=== PATIENT | male | born 1960 | race Two or more races ===

== ENCOUNTER 2023-09-15 09:09 | Inpatient (IN) | payer MEDICAID ==
[~2023-09-15] VITALS: Ht 162.6 cm; Wt 83.5 kg
[2023-09-15] MEDS ORDERED: ONDANSETRON HCL 4 MG/2 ML VIAL IV ONE (09:30)
[2023-09-15] MEDS ORDERED: MORPHINE SULFATE 4 MG/ML SYR/VIAL IV ONE (09:30)
[2023-09-15] MEDS ORDERED: SODIUM CHLORIDE 0.9% 500 ML IVB ONE (09:30)
[2023-09-15 09:36] LABS: Urine Epithelial Cast None Seen /hpf (<5)
[2023-09-15 10:03] LABS: Basophils # (auto) 0.1 10 ^3/uL (0-0.2); Eosinophils # (auto) 0.9 10 ^3/uL (0-0.8); Hemoglobin 12.6 g/dL (13.5-17.5); Mean Corpuscular Hgb Conc. 33.4 g/dL (32.0-36.0); Monocytes # (auto) 1.6 10 ^3/uL (0-1.3); Monocytes % (auto) 10.2 % (0.0-12.0); Neutrophils # (auto) 11.1 10 ^3/uL (1.6-8.6)
[2023-09-15 10:06] LABS: Basophils % (auto) 0.7 % (0.0-2.0); Eosinophils % (auto) 5.5 % (0.0-7.0); Hematocrit 37.6 % (41.0-53.0); Lymphocytes % (auto) 12.6 % (10.0-50.0); Mean Corpuscular Hemoglobin 29.5 pg (28.0-32.0); Mean Corpuscular Volume 88.1 fL (80.0-100.0); Red Blood Cells 4.27 10^6/uL (4.5-5.90); Red Cell Distribution Width 13.3 % (11.8-14.3); White Blood Cell 15.6 10^3/uL (4.4-10.8)
[2023-09-15 10:31] LABS: Alanine Aminotransferase 24 U/L (7-40); Alkaline Phosphatase 144 U/L (46-116); Anion Gap 7 (5-15); Aspartate Aminotransferase 12 U/L (13-40); BUN/Creatinine Ratio 22.8 (10.0-20.0); Bilirubin, Total 0.4 mg/dL (0.2-1.0); Blood Urea Nitrogen 13 mg/dL (9-23); Carbon Dioxide 27 mmol/L (20-30); Chloride 100 mmol/L (98-107); Glucose 124 mg/dL (74-106); Lipase 29 U/L (12-53); Potassium 4.2 mmol/L (3.5-5.1); Sodium 134 mmol/L (136-145); Total Protein 7.8 g/dL (5.7-8.2)
[2023-09-15 10:45] LABS: Urine Bacteria NONE SEEN /hpf (None Seen); Urine Blood Negative /uL (Negative); Urine Budding Yeast FEW /hpf (None Seen); Urine Clarity HAZY (Clear); Urine Color Yellow (Yellow); Urine Mucus FEW (None Seen); Urine Protein, UAD TRACE (Negative); Urine Specific Gravity 1.023 (1.001-1.035); Urine WBC 2 /hpf (0 - 3); Urine pH 7.5 (5.0-8.0)
[2023-09-15] MEDS ORDERED: IOHEXOL 300 MG/ML 100ML BOTTLE IJ ONE (10:52)
[2023-09-15] MEDS ORDERED: VANCOMYCIN HCL 1000 MG VL IR ONE (12:15)
[2023-09-15] MEDS ORDERED: PIPERACILLIN-TAZOB 3.375GM 100 ML IV ONE (12:15)
[2023-09-15] MEDS ORDERED: VANCOMYCIN 1GM/200ML 200 ML IV ONE (13:45)
[2023-09-15] MEDS ORDERED: VANCOMYCIN PER PHARMACY 0 MG IV SCH (15:00)
[2023-09-15] MEDS: PIPERACILLIN-TAZOB 3.375GM 100 ML IV SCH (18:30)
[2023-09-15 21:00] VITALS: PULSE 100; RESP 18; O2SAT 97
[2023-09-15] MEDS: ONDANSETRON HCL 4 MG/2 ML VIAL IV PRN (21:10)
[2023-09-15] MEDS: MORPHINE SULFATE INJ 2 MG/ml SYRG IV PRN (21:11)
[2023-09-16] MEDS: PIPERACILLIN-TAZOB 3.375GM 100 ML IV SCH ×4 (00:21→22:09)
[2023-09-16] MEDS: ONDANSETRON HCL 4 MG/2 ML VIAL IV PRN ×2 (02:12→07:08)
[2023-09-16] MEDS: MORPHINE SULFATE INJ 2 MG/ml SYRG IV PRN ×5 (02:13→23:55)
[2023-09-16] MEDS: VANCOMYCIN 1GM/200ML 200 ML IV SCH ×3 (02:54→23:02)
[2023-09-16 06:46] LABS: Eosinophils % (auto) 9.1 % (0.0-7.0)
[2023-09-16 06:49] LABS: Basophils # (auto) 0.2 10 ^3/uL (0-0.2); Eosinophils # (auto) 1.5 10 ^3/uL (0-0.8); Hematocrit 37.1 % (41.0-53.0); Hemoglobin 12.4 g/dL (13.5-17.5); Lymphocytes # (auto) 2.4 10 ^3/uL (0.4-5.4); Lymphocytes % (auto) 13.8 % (10.0-50.0); Mean Corpuscular Hemoglobin 29.6 pg (28.0-32.0); Mean Corpuscular Hgb Conc. 33.4 g/dL (32.0-36.0); Mean Corpuscular Volume 88.6 fL (80.0-100.0); Monocytes # (auto) 1.8 10 ^3/uL (0-1.3); Monocytes % (auto) 10.6 % (0.0-12.0); Neutrophils # (auto) 11.2 10 ^3/uL (1.6-8.6); Neutrophils % (auto) 65.5 % (37.0-80.0); Red Blood Cells 4.18 10^6/uL (4.5-5.90); Red Cell Distribution Width 13.4 % (11.8-14.3); White Blood Cell 17.1 10^3/uL (4.4-10.8)
[2023-09-16 06:55] LABS: INR 1.26 (0.9-1.15)
[2023-09-16 07:04] LABS: Alanine Aminotransferase 22 U/L (7-40); Albumin 4.1 g/dL (3.2-4.8); Alkaline Phosphatase 141 U/L (46-116); Anion Gap 7 (5-15); Aspartate Aminotransferase 10 U/L (13-40); BUN/Creatinine Ratio 17.6 (10.0-20.0); Bilirubin, Total 0.7 mg/dL (0.2-1.0); Blood Urea Nitrogen 12 mg/dL (9-23); Calcium 9.1 mg/dL (8.7-10.4); Carbon Dioxide 26 mmol/L (20-30); Chloride 100 mmol/L (98-107); Glucose 95 mg/dL (74-106); Potassium 4.5 mmol/L (3.5-5.1); Sodium 133 mmol/L (136-145)
[2023-09-16 07:05] LABS: Total Protein 7.9 g/dL (5.7-8.2)
[2023-09-16] MEDS ORDERED: ENOXAPARIN SOD 40 MG/0.4 ML SYRINGE SC SCH (10:00)
[2023-09-16] MEDS ORDERED: fentaNYL CITRATE 100 MCG/2 ML VL IV ONE (10:15)
[2023-09-16] MEDS ORDERED: MIDAZOLAM HCL 2MG/2ML 2ml VIAL (1mg/ml) IV ONE (10:15)
[2023-09-16] MEDS ORDERED: LIDOCAINE 2%HCL (LOCAL ANESTH.) INJ 10ml MDV ONE (12:25)
[2023-09-16] MEDS ORDERED: IOHEXOL 300 MG/ML 100ML BOTTLE IJ ONE (13:07)
[2023-09-16] MEDS ORDERED: GADOTERATE MEG 10 MMOL/20ml INJ (0.5MMOL/ml) IV ONE (17:37)
[2023-09-16 17:40] VITALS: BP 133/71; PULSE 87; RESP 20; TEMP 98.2; O2SAT 94
[2023-09-16 17:45] VITALS: BP 133/71; PULSE 87; RESP 20; TEMP 98.7; O2SAT 96
[2023-09-16] MEDS ORDERED: IBUP200C3 PO (18:26)
[2023-09-16 20:00] VITALS: PULSE 87; RESP 20; O2SAT 96
[2023-09-16 22:00] VITALS: BP_SYST 58; PULSE 82; RESP 18; TEMP 98.7; O2SAT 95
[2023-09-17] MEDS: PIPERACILLIN-TAZOB 3.375GM 100 ML IV SCH ×4 (00:39→17:59)
[2023-09-17] MEDS: MORPHINE SULFATE INJ 2 MG/ml SYRG IV PRN ×3 (05:46→17:56)
[2023-09-17 05:49] VITALS: BP 105/66; PULSE 83; RESP 20; TEMP 97.8; O2SAT 94
[2023-09-17 09:00] VITALS: BP 109/65; PULSE 82; RESP 20; TEMP 99.3; O2SAT 90
[2023-09-17] MEDS: VANCOMYCIN 1GM/200ML 200 ML IV SCH ×2 (09:00→18:55)
[2023-09-17 09:25] LABS: Basophils # (auto) 0.1 10 ^3/uL (0-0.2); Basophils % (auto) 0.6 % (0.0-2.0); Eosinophils # (auto) 1.2 10 ^3/uL (0-0.8); Eosinophils % (auto) 7.3 % (0.0-7.0); Hematocrit 36.6 % (41.0-53.0); Hemoglobin 12.4 g/dL (13.5-17.5); Lymphocytes # (auto) 1.7 10 ^3/uL (0.4-5.4); Mean Corpuscular Hemoglobin 30.4 pg (28.0-32.0); Mean Corpuscular Hgb Conc. 33.9 g/dL (32.0-36.0); Mean Corpuscular Volume 89.6 fL (80.0-100.0); Monocytes # (auto) 1.5 10 ^3/uL (0-1.3); Monocytes % (auto) 9.3 % (0.0-12.0); Neutrophils # (auto) 11.3 10 ^3/uL (1.6-8.6); Neutrophils % (auto) 71.8 % (37.0-80.0); Red Blood Cells 4.08 10^6/uL (4.5-5.90); Red Cell Distribution Width 13.5 % (11.8-14.3); White Blood Cell 15.8 10^3/uL (4.4-10.8)
[2023-09-17 09:34] LABS: Chloride 101 mmol/L (98-107); Potassium 4.1 mmol/L (3.5-5.1); Sodium 134 mmol/L (136-145)
[2023-09-17 09:35] LABS: Anion Gap 7 (5-15); Calcium 8.9 mg/dL (8.5-10.1); Carbon Dioxide 26 mmol/L (20-30)
[2023-09-17 09:40] LABS: BUN/Creatinine Ratio 13.3 (10.0-20.0); Blood Urea Nitrogen 10 mg/dL (9-23); Glucose 86 mg/dL (74-106)
[2023-09-17 13:45] VITALS: BP 128/74; PULSE 89; RESP 20; TEMP 98.4; O2SAT 91
[2023-09-17 17:05] VITALS: BP 128/64; PULSE 95; RESP 20; TEMP 99.8; O2SAT 90
[2023-09-17 20:00] VITALS: PULSE 104; RESP 18; O2SAT 91
[2023-09-17 22:16] VITALS: BP 126/60; PULSE 104; RESP 18; TEMP 97.8; O2SAT 91
[2023-09-18] MEDS: PIPERACILLIN-TAZOB 3.375GM 100 ML IV SCH ×4 (00:03→18:02)
[2023-09-18] MEDS: MORPHINE SULFATE INJ 2 MG/ml SYRG IV PRN ×3 (00:12→11:57)
[2023-09-18] MEDS: VANCOMYCIN 1GM/200ML 200 ML IV SCH ×2 (05:17→17:09)
[2023-09-18 05:26] VITALS: BP 120/65; PULSE 71; RESP 20; TEMP 98.6; O2SAT 95
[2023-09-18 09:30] VITALS: BP 120/66; PULSE 78; RESP 20; TEMP 99.3; O2SAT 93
[2023-09-18 12:33] VITALS: BP 120/63; PULSE 78; RESP 20; TEMP 98.8; O2SAT 93
[2023-09-18] MEDS ORDERED: VANCOMYCIN PER PHARMACY 0 MG IV SCH (14:45)
[2023-09-18] MEDS: HYDROcodone-ACET 10/325MG TAB PO PRN (19:01)
[2023-09-18 20:00] VITALS: RESP 18; O2SAT 91
[2023-09-18 22:00] VITALS: BP 114/71; PULSE 70; RESP 18; TEMP 97.9; O2SAT 100
[2023-09-19] VITALS (7 sets, daily range): BP systolic 102–134; BP diastolic 61–79; PULSE 60–77; RESP 18–20; TEMP 97.5–97.9; O2SAT 95–100
[2023-09-19] MEDS: PIPERACILLIN-TAZOB 3.375GM 100 ML IV SCH ×3 (00:14→11:57)
[2023-09-19] MEDS: VANCOMYCIN 1GM/200ML 200 ML IV SCH ×3 (02:27→21:04)
[2023-09-19] MEDS: HYDROcodone-ACET 10/325MG TAB PO PRN ×3 (02:34→16:04)
[2023-09-19] MEDS: metroNIDAZOLE 500 MG TAB PO SCH (21:04)
[2023-09-20] VITALS (7 sets, daily range): BP systolic 123–144; BP diastolic 68–80; PULSE 65–87; RESP 16–19; TEMP 97.7–98.4; O2SAT 91–100
[2023-09-20] MEDS: HYDROcodone-ACET 10/325MG TAB PO PRN ×3 (03:00→20:14)
[2023-09-20] MEDS: metroNIDAZOLE 500 MG TAB PO SCH ×3 (06:06→21:23)
[2023-09-20] MEDS: VANCOMYCIN 1GM/200ML 200 ML IV SCH (06:06)
[2023-09-20] MEDS: CEFTRIAXONE SODIUM 2 GM in D5W 5% 100 ML IV SCH (09:51)
[2023-09-20] MEDS ORDERED: CLINIMIX PER PHARMACY 0 ML IV SCH (11:30)
[2023-09-20 13:13] LABS: Potassium 4.3 mmol/L (3.5-5.1)
[2023-09-20 13:14] LABS: Calcium 9.3 mg/dL (8.5-10.1)
[2023-09-20 13:21] LABS: Albumin 4.2 g/dL (3.2-4.8); Phosphorus 2.8 mg/dL (2.4-5.1)
[2023-09-20 13:25] LABS: Basophils # (auto) 0.1 10 ^3/uL (0-0.2); Basophils % (auto) 0.6 % (0.0-2.0); Eosinophils # (auto) 0.7 10 ^3/uL (0-0.8); Eosinophils % (auto) 4.9 % (0.0-7.0); Hematocrit 40.5 % (41.0-53.0); Hemoglobin 13.4 g/dL (13.5-17.5); Lymphocytes # (auto) 1.6 10 ^3/uL (0.4-5.4); Lymphocytes % (auto) 11.7 % (10.0-50.0); Mean Corpuscular Hemoglobin 29.4 pg (28.0-32.0); Mean Corpuscular Hgb Conc. 33.1 g/dL (32.0-36.0); Mean Corpuscular Volume 88.8 fL (80.0-100.0); Monocytes # (auto) 0.9 10 ^3/uL (0-1.3); Monocytes % (auto) 7.1 % (0.0-12.0); Neutrophils # (auto) 10.2 10 ^3/uL (1.6-8.6); Neutrophils % (auto) 75.7 % (37.0-80.0); Red Blood Cells 4.57 10^6/uL (4.5-5.90); Red Cell Distribution Width 13.7 % (11.8-14.3); White Blood Cell 13.4 10^3/uL (4.4-10.8)
[2023-09-20 13:37] LABS: INR 1.31 (0.9-1.15); Partial Thromboplastin Time 36.5 SEC (24.5-34.5); Prothrombin Time 13.5 sec (9.3-11.8)
[2023-09-20] MEDS ORDERED: IOHEXOL 300 MG/ML 100ML BOTTLE IJ ONE (15:27)
[2023-09-20] MEDS: InsuLIN REG 1unit/0.01ml Soln (100units/ml) SC SCH (17:49)
[2023-09-20] MEDS: ACCU-CHEK COMFORT CURVE STRIP VI SCH (17:53)
[2023-09-20] MEDS ORDERED: DEXTROSE (50%) 50ML SYRG IV SCH (18:00)
[2023-09-20] MEDS ORDERED: AMINO ACID INFUSION IN D10W 1,000 ML IV SCH (20:00)
[2023-09-21] VITALS (7 sets, daily range): BP systolic 126–133; BP diastolic 72–88; PULSE 60–72; RESP 18–21; TEMP 97.3–97.6; O2SAT 94–97
[2023-09-21] MEDS: ACCU-CHEK COMFORT CURVE STRIP VI SCH ×4 (00:17→17:33)
[2023-09-21] MEDS: HYDROcodone-ACET 10/325MG TAB PO PRN ×3 (04:02→21:22)
[2023-09-21] MEDS: InsuLIN REG 1unit/0.01ml Soln (100units/ml) SC SCH ×4 (05:57→17:32)
[2023-09-21] MEDS: metroNIDAZOLE 500 MG TAB PO SCH ×3 (06:00→21:22)
[2023-09-21 06:30] LABS: Basophils # (auto) 0.1 10 ^3/uL (0-0.2); Eosinophils # (auto) 0.9 10 ^3/uL (0-0.8); Neutrophils # (auto) 8.1 10 ^3/uL (1.6-8.6)
[2023-09-21 06:32] LABS: Eosinophils % (auto) 7.4 % (0.0-7.0); Hematocrit 39.3 % (41.0-53.0); Hemoglobin 13.1 g/dL (13.5-17.5); Lymphocytes # (auto) 1.9 10 ^3/uL (0.4-5.4); Lymphocytes % (auto) 15.5 % (10.0-50.0); Mean Corpuscular Hemoglobin 29.6 pg (28.0-32.0); Mean Corpuscular Hgb Conc. 33.4 g/dL (32.0-36.0); Mean Corpuscular Volume 88.4 fL (80.0-100.0); Monocytes % (auto) 8.2 % (0.0-12.0); Neutrophils % (auto) 67.9 % (37.0-80.0); Nucleated Red Blood Cells % 0.1 %; Red Blood Cells 4.44 10^6/uL (4.5-5.90); Red Cell Distribution Width 13.5 % (11.8-14.3)
[2023-09-21 06:33] LABS: Alanine Aminotransferase 10 U/L (7-40); Alkaline Phosphatase 120 U/L (46-116); Anion Gap 5 (5-15); Aspartate Aminotransferase 12 U/L (13-40); BUN/Creatinine Ratio 12.5 (10.0-20.0); Blood Urea Nitrogen 7 mg/dL (9-23); Calcium 8.9 mg/dL (8.7-10.4); Carbon Dioxide 25 mmol/L (20-30); Chloride 102 mmol/L (98-107); Glucose 119 mg/dL (74-106); Magnesium 2.1 mg/dL (1.6-2.6); Sodium 132 mmol/L (136-145)
[2023-09-21 06:34] LABS: Bilirubin, Total 0.4 mg/dL (0.2-1.0); Phosphorus 2.6 mg/dL (2.4-5.1); Total Protein 7.8 g/dL (5.7-8.2)
[2023-09-21] MEDS: CEFTRIAXONE SODIUM 2 GM in D5W 5% 100 ML IV SCH (09:00)
[2023-09-21] MEDS: MORPHINE SULFATE INJ 2 MG/ml SYRG IV PRN (15:20)
[2023-09-22] MEDS: ACCU-CHEK COMFORT CURVE STRIP VI SCH ×4 (00:50→17:42)
[2023-09-22] MEDS: InsuLIN REG 1unit/0.01ml Soln (100units/ml) SC SCH ×4 (00:50→17:42)
[2023-09-22] MEDS: HYDROcodone-ACET 10/325MG TAB PO PRN ×4 (03:25→22:06)
[2023-09-22 05:00] VITALS: BP 109/75; PULSE 72; RESP 17; TEMP 98; O2SAT 95
[2023-09-22] MEDS: metroNIDAZOLE 500 MG TAB PO SCH ×3 (06:05→22:06)
[2023-09-22 09:00] VITALS: BP 113/65; PULSE 74; RESP 17; TEMP 98; O2SAT 96
[2023-09-22] MEDS: CEFTRIAXONE SODIUM 2 GM in D5W 5% 100 ML IV SCH (09:44)
[2023-09-22] MEDS ORDERED: DOCUSATE SOD 100 MG CAP PO ONE (11:00)
[2023-09-22 13:03] VITALS: BP 120/69; PULSE 67; RESP 17; TEMP 97.7; O2SAT 94
[2023-09-22 15:35] LABS: Alanine Aminotransferase 21 U/L (7-40); Albumin 3.7 g/dL (3.2-4.8); Alkaline Phosphatase 112 U/L (46-116); Anion Gap 5 (5-15); Aspartate Aminotransferase 29 U/L (13-40); BUN/Creatinine Ratio 12.1 (10.0-20.0); Bilirubin, Total 0.2 mg/dL (0.2-1.0); Blood Urea Nitrogen 7 mg/dL (9-23); Calcium 8.8 mg/dL (8.7-10.4); Carbon Dioxide 29 mmol/L (20-30); Chloride 102 mmol/L (98-107); Glucose 96 mg/dL (74-106); Magnesium 1.9 mg/dL (1.6-2.6); Phosphorus 3.2 mg/dL (2.4-5.1); Potassium 4.2 mmol/L (3.5-5.1); Sodium 136 mmol/L (136-145); Total Protein 7.3 g/dL (5.7-8.2)
[2023-09-22 20:00] VITALS: PULSE 69; RESP 17
[2023-09-22 22:00] VITALS: BP 119/71; PULSE 69; RESP 17; TEMP 97.8; O2SAT 94
[2023-09-23] MEDS: ACCU-CHEK COMFORT CURVE STRIP VI SCH ×4 (00:09→17:11)
[2023-09-23] MEDS: HYDROcodone-ACET 10/325MG TAB PO PRN ×3 (03:39→17:07)
[2023-09-23 05:00] VITALS: BP 113/74; PULSE 77; RESP 16; TEMP 98.1; O2SAT 96
[2023-09-23] MEDS: InsuLIN REG 1unit/0.01ml Soln (100units/ml) SC SCH ×4 (05:59→17:11)
[2023-09-23] MEDS: metroNIDAZOLE 500 MG TAB PO SCH ×3 (06:26→22:14)
[2023-09-23 06:29] LABS: Basophils # (auto) 0.1 10 ^3/uL (0-0.2); Eosinophils # (auto) 1.2 10 ^3/uL (0-0.8); Lymphocytes # (auto) 1.4 10 ^3/uL (0.4-5.4)
[2023-09-23 06:32] LABS: Basophils % (auto) 1.2 % (0.0-2.0); Eosinophils % (auto) 10.5 % (0.0-7.0); Hematocrit 37.4 % (41.0-53.0); Hemoglobin 12.6 g/dL (13.5-17.5); Lymphocytes % (auto) 12.6 % (10.0-50.0); Mean Corpuscular Hemoglobin 29.2 pg (28.0-32.0); Mean Corpuscular Hgb Conc. 33.5 g/dL (32.0-36.0); Mean Corpuscular Volume 87.1 fL (80.0-100.0); Monocytes # (auto) 0.9 10 ^3/uL (0-1.3); Monocytes % (auto) 8.4 % (0.0-12.0); Neutrophils # (auto) 7.6 10 ^3/uL (1.6-8.6); Neutrophils % (auto) 67.3 % (37.0-80.0); Red Cell Distribution Width 13.8 % (11.8-14.3); White Blood Cell 11.3 10^3/uL (4.4-10.8)
[2023-09-23 06:42] LABS: Alanine Aminotransferase 36 U/L (7-40); Albumin 3.5 g/dL (3.2-4.8); Alkaline Phosphatase 107 U/L (46-116); Anion Gap 3 (5-15); Aspartate Aminotransferase 51 U/L (13-40); Blood Urea Nitrogen 7 mg/dL (9-23); Calcium 8.8 mg/dL (8.7-10.4); Carbon Dioxide 28 mmol/L (20-30); Chloride 104 mmol/L (98-107); Glucose 103 mg/dL (74-106); Magnesium 1.8 mg/dL (1.6-2.6); Potassium 4.1 mmol/L (3.5-5.1); Sodium 135 mmol/L (136-145)
[2023-09-23 06:43] LABS: Bilirubin, Total 0.3 mg/dL (0.2-1.0); Phosphorus 3.5 mg/dL (2.4-5.1)
[2023-09-23 09:00] VITALS: BP 104/70; PULSE 58; RESP 20; TEMP 98.5; O2SAT 97
[2023-09-23] MEDS: CEFTRIAXONE SODIUM 2 GM in D5W 5% 100 ML IV SCH (10:01)
[2023-09-23] MEDS ORDERED: fentaNYL CITRATE 100 MCG/2 ML VL IV ONE (10:15)
[2023-09-23] MEDS ORDERED: MIDAZOLAM HCL 2MG/2ML 2ml VIAL (1mg/ml) IV ONE (10:15)
[2023-09-23] MEDS ORDERED: LIDOCAINE 2%HCL (LOCAL ANESTH.) INJ 10ml MDV ONE (10:38)
[2023-09-23 12:51] VITALS: BP 107/67; PULSE 76; RESP 20; TEMP 98.2; O2SAT 96
[2023-09-23] MEDS ORDERED: GASTROGRAFIN 120 ML SOL ONE (15:55)
[2023-09-23 17:00] VITALS: BP 130/71; PULSE 67; RESP 19; TEMP 98; O2SAT 100
[2023-09-23 20:00] VITALS: BP 110/73; PULSE 75; RESP 18; TEMP 97.4
[2023-09-23 22:00] VITALS: BP 110/73; PULSE 75; RESP 18; TEMP 97.4; O2SAT 96
[2023-09-23] MEDS: MORPHINE SULFATE INJ 2 MG/ml SYRG IV PRN (22:14)
[2023-09-24] VITALS (7 sets, daily range): BP systolic 100–119; BP diastolic 59–97; PULSE 57–77; RESP 18–21; TEMP 97.6–98.3; O2SAT 94–99
[2023-09-24] MEDS: HYDROcodone-ACET 10/325MG TAB PO PRN ×3 (04:30→22:01)
[2023-09-24] MEDS: ACCU-CHEK COMFORT CURVE STRIP VI SCH ×4 (05:47→18:40)
[2023-09-24] MEDS: InsuLIN REG 1unit/0.01ml Soln (100units/ml) SC SCH ×4 (05:47→18:40)
[2023-09-24] MEDS: metroNIDAZOLE 500 MG TAB PO SCH ×3 (06:16→21:37)
[2023-09-24] MEDS: CEFTRIAXONE SODIUM 2 GM in D5W 5% 100 ML IV SCH (09:56)
[2023-09-24] MEDS: MORPHINE SULFATE INJ 2 MG/ml SYRG IV PRN (09:57)
[2023-09-24] MEDS: CEFEPIME 2GM/50ML NS 50 ML IV SCH (21:37)
[2023-09-25] MEDS: ACCU-CHEK COMFORT CURVE STRIP VI SCH ×4 (00:10→16:35)
[2023-09-25] MEDS: CEFEPIME 2GM/50ML NS 50 ML IV SCH ×2 (04:07→10:56)
[2023-09-25] MEDS: HYDROcodone-ACET 10/325MG TAB PO PRN (04:16)
[2023-09-25 05:00] VITALS: BP 115/71; PULSE 67; RESP 18; TEMP 98.1; O2SAT 96
[2023-09-25] MEDS: metroNIDAZOLE 500 MG TAB PO SCH ×2 (05:47→14:13)
[2023-09-25] MEDS: InsuLIN REG 1unit/0.01ml Soln (100units/ml) SC SCH ×4 (05:48→17:09)
[2023-09-25 08:00] VITALS: PULSE 64; RESP 18; O2SAT 95
[2023-09-25 09:00] VITALS: BP 100/70; PULSE 59; RESP 18; TEMP 97.5; O2SAT 95
[2023-09-25] MEDS: ONDANSETRON HCL 4 MG/2 ML VIAL IV PRN (10:43)
[2023-09-25] MEDS: MORPHINE SULFATE INJ 2 MG/ml SYRG IV PRN ×2 (10:43→16:34)
[2023-09-25 13:00] VITALS: BP 133/84; PULSE 59; RESP 16; TEMP 98.2; O2SAT 96
[2023-09-25 16:18] VITALS: TEMP 36.8
[2023-09-25 17:12] VITALS: BP 124/61; PULSE 72; RESP 18
== END 2023-09-25 18:15 | disposition home health service (06) | DRG 720 ==
LOC: ER 09:09 → OVERFLOW 15:01 → WEST WING 09-16 17:34
PROVIDERS: ADMIT Internal Medicine; ATTEND Hospitalist
PROC: 0F913ZZ Drainage of Right Lobe Liver, Percutaneous Approach (ICD-10-PCS; 2023-09-16)
PROC: 0W9F30Z Drainage of Abdominal Wall with Drainage Device, Percutaneous Approach (ICD-10-PCS; 2023-09-16)
PROC: 0F9130Z Drainage of Right Lobe Liver with Drainage Device, Percutaneous Approach (ICD-10-PCS; 2023-09-23)
PROC: B54NZZA Ultrasonography of Left Upper Extremity Veins, Guidance (ICD-10-PCS; principal; 2023-09-25)
PROC: 05HF33Z Insertion of Infusion Device into Left Cephalic Vein, Percutaneous Approach (ICD-10-PCS; 2023-09-25)
DX: A41.9 Sepsis, unspecified organism (principal); K75.0 Abscess of liver; D68.69 Other thrombophilia; K57.20 Diverticulitis of large intestine with perforation and abscess without bleeding; Z68.44 Body mass index [BMI] 60.0-69.9, adult; K59.00 Constipation, unspecified; E78.5 Hyperlipidemia, unspecified; I10 Essential (primary) hypertension; N32.89 Other specified disorders of bladder; E66.01 Morbid (severe) obesity due to excess calories; B96.20 Unspecified Escherichia coli [E. coli] as the cause of diseases classified elsewhere; B96.5 Pseudomonas (aeruginosa) (mallei) (pseudomallei) as the cause of diseases classified elsewhere; B96.89 Other specified bacterial agents as the cause of diseases classified elsewhere
CPT/HCPCS: 36415; 74150; 74177; 74183; 74270; 75989; 76705; 76942; 80048; 80053; 80069; 80202; 81001; 82565; 82962; 83690; 83735; 84100; 85025; 85610; 85730; 87040; 87077; 87186; 87205; 93005; C1729; G0378; J0692; J0696; J1815; J2001; J2250; J2405; J2543; J7060

== ENCOUNTER 2023-10-28 09:31 | Emergency (ER) | payer MEDICAID ==
[~2023-10-28] VITALS: Ht 162.6 cm; Wt 86.7 kg
[~2023-10-28 09:31] MED LIST: IBUP200C3 PO
[2023-10-28 10:11] LABS: Basophils # (auto) 0.2 10 ^3/uL (0-0.2); Basophils % (auto) 2.2 % (0.0-2.0); Eosinophils # (auto) 0.9 10 ^3/uL (0-0.8); Eosinophils % (auto) 10.7 % (0.0-7.0); Hematocrit 45.7 % (41.0-53.0); Hemoglobin 15.3 g/dL (13.5-17.5); Lymphocytes # (auto) 2.1 10 ^3/uL (0.4-5.4); Lymphocytes % (auto) 25.7 % (10.0-50.0); Mean Corpuscular Hemoglobin 29.3 pg (28.0-32.0); Mean Corpuscular Hgb Conc. 33.4 g/dL (32.0-36.0); Mean Corpuscular Volume 87.7 fL (80.0-100.0); Monocytes # (auto) 0.8 10 ^3/uL (0-1.3); Monocytes % (auto) 10.1 % (0.0-12.0); Neutrophils # (auto) 4.3 10 ^3/uL (1.6-8.6); Neutrophils % (auto) 51.3 % (37.0-80.0); Nucleated Red Blood Cells % 0.1 %; Red Blood Cells 5.22 10^6/uL (4.5-5.90); Red Cell Distribution Width 15.5 % (11.8-14.3); White Blood Cell 8.3 10^3/uL (4.4-10.8)
[2023-10-28 10:30] LABS: Alanine Aminotransferase 10 U/L (7-40); Albumin 4.4 g/dL (3.2-4.8); Alkaline Phosphatase 131 U/L (46-116); Anion Gap 7 (5-15); Aspartate Aminotransferase 12 U/L (13-40); BUN/Creatinine Ratio 13.8 (10.0-20.0); Bilirubin, Total 0.6 mg/dL (0.2-1.0); Blood Urea Nitrogen 8 mg/dL (9-23); Calcium 9.3 mg/dL (8.5-10.1); Carbon Dioxide 25 mmol/L (20-30); Chloride 107 mmol/L (98-107); Glucose 94 mg/dL (74-106); Potassium 4.1 mmol/L (3.5-5.1); Sodium 139 mmol/L (136-145); Total Protein 7.1 g/dL (5.7-8.2)
[2023-10-28 11:39] LABS: Lipase 25 U/L (12-53)
[2023-10-28 12:14] VITALS: BP 139/75; PULSE 75; RESP 18; TEMP 98.2; O2SAT 97
== END 2023-10-28 12:13 | disposition home or self-care (01) ==
LOC: ER 09:31
DX: R16.0 Hepatomegaly, not elsewhere classified (principal); I10 Essential (primary) hypertension; Z79.1 Long term (current) use of non-steroidal anti-inflammatories (NSAID)
CPT/HCPCS: 36415; 80053; 83690; 84484; 85025